=== PATIENT | male | born 1990 | race African-American/Black ===

== ENCOUNTER 2019-01-15 06:33 | Day surgery (SDC) | payer OTHER ==
[~2019-01-15] VITALS: Ht 193 cm; Wt 127.0 kg
[2019-01-15 06:51] VITALS: BP 158/82
[2019-01-15 15:10] VITALS: BP 143/91
== END 2019-01-15 14:40 | disposition home or self-care (01) ==
LOC: DS 06:33 → OR 07:30 → DS 14:40
PROVIDERS: Neuromusculoskeletal Medicine, Sports Medicine
PROC: 0SBC4ZZ Excision of Right Knee Joint, Percutaneous Endoscopic Approach (ICD-10-PCS; 2019-01-15)
PROC: 0MRN47Z Replacement of Right Knee Bursa and Ligament with Autologous Tissue Substitute, Percutaneous Endoscopic Approach (ICD-10-PCS; principal; 2019-01-15 07:30)
DX: S83.511A Sprain of anterior cruciate ligament of right knee, initial encounter (principal); S83.211A Bucket-handle tear of medial meniscus, current injury, right knee, initial encounter; X58.XXXA Exposure to other specified factors, initial encounter; Y92.9 Unspecified place or not applicable
CPT/HCPCS: J0690; J1170; J2405; J2704; J3010; J3490; J7120